=== PATIENT | male | born 1975 | race Two or more races ===

== ENCOUNTER 2022-05-06 13:19 | Emergency (ER) | payer SELFPAY ==
[~2022-05-06] VITALS: Ht 170.2 cm; Wt 54.4 kg
[2022-05-06 13:33] VITALS: BP 110/70
--- NOTE | 2022-05-06 13:45 | NUR ---
COVID SWAB COLLECTED AND SENT TO LAB
--- NOTE | 2022-05-06 15:09 | NUR ---
Patient discharged to law enforcement in stable condition, ok for booking. Written and verbal after care instructions given. Patient verbalizes understanding of instruction. Officer Scar #[id number] signed d/c papers.
== END 2022-05-06 15:11 ==
LOC: ER 13:28
DX: Z02.89 Encounter for other administrative examinations (principal); Z20.822 Contact with and (suspected) exposure to COVID-19
CPT/HCPCS: 99283; 87426; C9803